=== PATIENT | female | born 1950 | race African-American/Black ===

== ENCOUNTER 2018-04-22 18:15 | Observation (INO) | payer MEDICARE ==
[2018-04-22] MEDS ORDERED: NORMAL SALINE 1000 ML 1,000 ML IV ONE (18:53)
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
[2018-04-22 22:11] LABS: ABSOLUTE LYMPHOCYTES (AUTO) 2.1 10^3/uL (0.5-4.7); ABSOLUTE MONOCYTES (AUTO) 0.7 10^3/uL (0.1-1.4); ABSOLUTE NEUT (AUTO) 3.6 10^3/uL (1.7-8.2); BASOPHILS % (AUTO) 0.7 % (0-2); EOSINOPHILS % (AUTO) 0.2 % (0-6); HEMATOCRIT 35.9 % (36.0-47.0); HEMOGLOBIN 11.9 g/dL (12.0-15.5); LYMPHOCYTES % (AUTO) 32.9 % (13-45); MEAN CORPUSCULAR HEMOGLOBIN 28.9 pg (27.0-33.4); MEAN CORPUSCULAR HGB CONC 33.3 g/dL (32.0-36.0); MEAN CORPUSCULAR VOLUME 87 fl (80-97); MONOCYTES % (AUTO) 10.2 % (3-13); PLATELET COUNT 258 10^3/uL (150-450); RED BLOOD COUNT 4.13 10^6/uL (3.72-5.28); RED CELL DISTRIBUTION WIDTH 15.1 % (11.5-14.0); TOTAL CELLS COUNTED % (AUTO) 100 %; WHITE BLOOD COUNT 6.4 10^3/uL (4.0-10.5)
[2018-04-22 22:20] LABS: APPEARANCE,URINE CLOUDY; BILIRUBIN,URINE NEGATIVE (NEGATIVE); COLOR,URINE YELLOW; GLUCOSE, URINE NEGATIVE (NEGATIVE); KETONES,URINE NEGATIVE (NEGATIVE); LEUKOCYTE ESTERASE,URINE LARGE (NEGATIVE); NITRITE,URINE NEGATIVE (NEGATIVE); PROTEIN,URINE 30 mg/dL (NEGATIVE); URINE SPECIFIC GRAVITY 1.025
[2018-04-22 22:31] LABS: ALANINE AMINOTRANSFERASE 17 U/L (9-52); ALBUMIN 4.2 g/dL (3.5-5.0); ALKALINE PHOSPHATASE 80 U/L (38-126); ANION GAP 13 (5-19); ASPARTATE AMINO TRANSFERASE 26 U/L (14-36); BILIRUBIN,DIRECT 0.2 mg/dL (0.0-0.4); BILIRUBIN,TOTAL 0.4 mg/dL (0.2-1.3); BLOOD UREA NITROGEN 22 mg/dL (7-20); CARBON DIOXIDE 25 mmol/L (22-30); CHLORIDE 105 mmol/L (98-107); GLUCOSE 174 mg/dL (75-110); POTASSIUM 4.6 mmol/L (3.6-5.0); SODIUM 142.6 mmol/L (137-145)
--- NOTE | 2018-04-22 22:54 | RADIOLOGY REPORT (SQ) ---
XR CHEST 1 VIEW HISTORY: Hypertension. Weakness. COMPARISON: None. FINDINGS: The cardiomediastinal silhouette is unremarkable. The lungs are clear. No pleural effusion or pneumothorax is identified. No acute osseous findings are seen. IMPRESSION: No acute cardiopulmonary abnormality.
--- NOTE | 2018-04-22 23:15 | RADIOLOGY REPORT (SQ) ---
CT HEAD WITHOUT IV CONTRAST HISTORY: Hypertension. Weakness. COMPARISON: None. TECHNIQUE: CT scan of the brain without IV contrast. This exam was performed according to our departmental dose-optimization program, which includes automated exposure control, adjustment of the mA and/or kV according to patient size and/or use of iterative reconstruction technique. FINDINGS: There is a large area of encephalomalacia in the left high parietal region containing CSF and calcifications from prior trauma. The overlying calvarium is thinned and contains fracture fragments, which appear chronic given the lack of scalp swelling. Scattered areas of hypoattenuation within the periventricular white matter likely representing chronic microvascular ischemia. The lainez-white matter differentiation is preserved without evidence of acute territorial infarction. No intracranial hemorrhage, midline shift, or extra-axial fluid collection is identified. The paranasal sinuses and mastoid air cells are clear. IMPRESSION: 1. No acute intracranial hemorrhage. 2. Old injury to the left high parietal region with large area of encephalomalacia. There is a fracture of the overlying calvarium with fragments within the area of encephalomalacia, which all appear chronic. However, please correlate for point tenderness in this region.
[2018-04-22 23:16] LABS: CREATINE KINASE MB 1.88 ng/mL (<4.55)
[2018-04-22 23:18] LABS: TROPONIN I 0.046 ng/mL
[2018-04-23] MEDS ORDERED: MAG HYDROX/AL HYDROX/SIMETH SUSP 30 ML UDCUP PO PRN (00:44)
[2018-04-23] MEDS ORDERED: DEXTROSE 50%-WATER 25 GM/50 ML DISP.SYRIN IV PRN ×2 (00:48)
[2018-04-23] MEDS ORDERED: GLUCAGON,HUMAN RECOMB 1 MG INJ IM PRN (00:48)
[2018-04-23] MEDS ORDERED: DEXTROSE 40% GEL 15 GM TUBE PO PRN ×2 (00:48)
[2018-04-23] MEDS ORDERED: GLUCAGON,HUMAN RECOMB 1 MG INJ IM ONE (02:51)
[2018-04-23 03:49] LABS: ANION GAP 9 (5-19); BLOOD UREA NITROGEN 21 mg/dL (7-20); CALCIUM 10.1 mg/dL (8.4-10.2); CARBON DIOXIDE 26 mmol/L (22-30); CHLORIDE 108 mmol/L (98-107); GLUCOSE 201 mg/dL (75-110); POTASSIUM 4.4 mmol/L (3.6-5.0); SODIUM 142.5 mmol/L (137-145)
[2018-04-23 04:01] LABS: CREATINE KINASE MB 1.95 ng/mL (<4.55); TROPONIN I 0.046 ng/mL
--- NOTE | 2018-04-23 07:33 | PDOC H&P ---
History of Present Illness Admission Date/PCP: 04/23/18 00:37 [facility] Patient complains of: Almost passed out History of Present Illness: NENITA SANCHEZ is a 68 year old female with a past medical history of paroxysmal atrial fibrillation on propafenone, hypertension and remote breast cancer. Patient presents after lightheadedness after standing from a sitting position. She denies chest pain, palpitations, nausea or vomiting symptoms persisted approximately 5 minutes prompting evaluation in the emergency room where she is found to have sinus bradycardia in the 40s. She denies previous episode, change in medication regiment and otherwise feels well with the exception of constipation. Initial workup is unremarkable without evidence of hypoperfusion she is referred to the hospitalist for admission. Past Medical History Cardiac Medical History: Reports: Hypertension Denies: Coronary Artery Disease, Myocardial Infarction Pulmonary Medical History: Reports: Bronchitis Denies: Asthma, Chronic Obstructive Pulmonary Disease (COPD), Pneumonia EENT Medical History: Reports: None Neurological Medical History: Denies: Seizures Endocrine Medical History: Reports: Diabetes Mellitus Type 2 Renal/ Medical History: Reports: None Malignancy Medical History: Reports: Breast Cancer - Right GI Medical History: Reports: Gastroesophageal Reflux Disease Musculoskeltal Medical History: Reports: Arthritis Skin Medical History: Reports: None Psychiatric Medical History: Reports: None Traumatic Medical History: Reports: Traumatic Brain Injury Hematology: Reports: Anemia - hx Infectious Medical History: Reports: None Past Surgical History Past Surgical History: Reports: Cholecystectomy, Mastectomy - Right, Tubal Ligation Denies: Hysterectomy Social History Information Source: Patient Lives with: Family Smoking Status: Never Smoker Frequency of Alcohol Use: None Drugs: None - Advance Directive Resuscitation Status: Full Code Family History Family History: Arthritis, CAD, CVA, DM, Hyperlipidemia, Hypertension, Malignancy, Thyroid Disfunction. denies: COPD Parental Family History Reviewed: Yes Children Family History Reviewed: Yes Sibling(s) Family History Reviewed.: Yes Medication/Allergy Allergies/Adverse Reactions: Beef Containing Products Allergy (Verified 04/22/18 18:45) egg Allergy (Verified 04/22/18 18:45) peanut Allergy (Verified 04/22/18 18:16) Review of Systems Constitutional: ABSENT: chills, fever(s), headache(s), weight gain, weight loss Eyes: ABSENT: visual disturbances Ears: ABSENT: hearing changes Cardiovascular: ABSENT: chest pain, dyspnea on exertion, edema, orthropnea, palpitations Respiratory: ABSENT: cough, hemoptysis Gastrointestinal: PRESENT: constipation. ABSENT: abdominal pain, diarrhea, hematemesis, hematochezia, nausea, vomiting Genitourinary: ABSENT: dysuria, hematuria Musculoskeletal: ABSENT: joint swelling Integumentary: ABSENT: rash, wounds Neurological: ABSENT: abnormal gait, abnormal speech, confusion, dizziness, focal weakness, syncope Psychiatric: ABSENT: anxiety, depression, homidical ideation, suicidal ideation Endocrine: ABSENT: cold intolerance, heat intolerance, polydipsia, polyuria Hematologic/Lymphatic: ABSENT: easy bleeding, easy bruising Physical Exam Vital Signs: Temp Pulse Resp BP Pulse Ox 98.4 F 45 L 16 131/65 H 99 04/23/18 04:18 04/23/18 04:18 04/23/18 04:18 04/23/18 04:18 04/23/18 04:18 Intake & Output 04/21/18 04/22/18 04/23/18 11:59 11:59 11:59 Weight 144.8 kg General appearance: PRESENT: no acute distress, well-developed, well-nourished Head exam: PRESENT: atraumatic, normocephalic Eye exam: PRESENT: conjunctiva pink, EOMI, PERRLA. ABSENT: scleral icterus Ear exam: PRESENT: normal external ear exam Mouth exam: PRESENT: moist, tongue midline Neck exam: ABSENT: carotid bruit, JVD, lymphadenopathy, thyromegaly Respiratory exam: PRESENT: clear to auscultation rebecca. ABSENT: rales, rhonchi, wheezes Cardiovascular exam: PRESENT: bradycardia, RRR. ABSENT: diastolic murmur, rubs , systolic murmur Pulses: PRESENT: normal dorsalis pedis pul Vascular exam: PRESENT: normal capillary refill GI/Abdominal exam: PRESENT: normal bowel sounds, soft. ABSENT: distended, guarding, mass, organolmegaly, rebound, tenderness Rectal exam: PRESENT: deferred Extremities exam: PRESENT: full ROM. ABSENT: calf tenderness, clubbing, pedal edema Neurological exam: PRESENT: alert, awake, oriented to person, oriented to place , oriented to time, oriented to situation, CN II-XII grossly intact. ABSENT: motor sensory deficit Psychiatric exam: PRESENT: appropriate affect, normal mood. ABSENT: homicidal ideation, suicidal ideation Skin exam: PRESENT: dry, intact, warm. ABSENT: cyanosis, rash Results Laboratory Results: 04/23/18 03:21 04/23/18 03:21 Sodium 142.5 Potassium 4.4 Chloride 108 H Carbon Dioxide 26 Anion Gap 9 BUN 21 H Creatinine 0.96 Est GFR ( Amer) > 60 Est GFR (Non-Af Amer) 58 L Glucose 201 H Calcium 10.1 04/23/18 03:21 CK-MB (CK-2) 1.95 Troponin I 0.046 Impressions: Chest X-Ray 04/22/18 00:00 IMPRESSION: No acute cardiopulmonary abnormality. Head CT 04/22/18 00:00 IMPRESSION: 1. No acute intracranial hemorrhage. 2. Old injury to the left high parietal region with large area of encephalomalacia. There is a fracture of the overlying calvarium with fragments within the area of encephalomalacia, which all appear chronic. However, please correlate for point tenderness in this region. Assessment & Plan - Diagnosis (1) Pre-syncope Is this a current diagnosis for this admission?: Yes Plan: Most likely secondary to propafenone with bradycardia, hold propafenone with orthostatic blood pressures. (2) Bradycardia on ECG Is this a current diagnosis for this admission?: Yes Plan: Most likely secondary to propafenone, follow-up TSH and orthostatic blood pressures (3) Diabetes Is this a current diagnosis for this admission?: Yes Plan: Outpatient regimen with Humalog sliding scale - Time Time Spent: 50 to 70 Minutes - Inpatient Certification Medical Necessity: Need Close Monitoring Due to Risk of Patient Decompensation
[2018-04-23] MEDS ORDERED: NORMAL SALINE 1000 ML 1,000 ML IV ONE (08:47)
--- NOTE | 2018-04-23 09:25 | EKG REPORT ---
SEVERITY:- ABNORMAL ECG - SINUS BRADYCARDIA BORDERLINE LEFT AXIS DEVIATION BORDERLINE R WAVE PROGRESSION, ANTERIOR LEADS BORDERLINE T ABNORMALITIES, DIFFUSE LEADS : Confirmed by: Epi Selby 23-Apr-2018 09:25:17
[2018-04-23] MEDS: AMLODIPINE BESYLATE 10 MG TABLET PO SCH (09:43)
[2018-04-23] MEDS: DOCUSATE SODIUM 100 MG CAPSULE PO SCH ×2 (09:46→18:59)
[2018-04-23] MEDS ORDERED: TRIAMCINOLONE ACETONIDE 0.1% CREAM 15 GM TOP PRN (11:28)
[2018-04-23 11:41] LABS: CREATINE KINASE MB 0.66 ng/mL (<4.55); TROPONIN I 0.02 ng/mL
[2018-04-23 16:11] LABS: CREATINE KINASE MB 1.66 ng/mL (<4.55); TROPONIN I 0.046 ng/mL
--- NOTE | 2018-04-23 18:21 | PDOC PROGRESS REPORT ---
Subjective Progress Note for:: 04/23/18 Subjective:: The patient is a 68-year-old female with a past medical history of PAF on propafenon, hypertension, bronchitis, DM 2, remote breast cancer, GERD, arthritis, TBI, remote breast cancer, and morbid obesity who was admitted for presyncopal symptoms and bradycardia. Patient was seen on morning rounds with her daughter present. She was found resting in bed comfortably on room air. She denies further symptoms of dizziness, lightheadedness, nausea and vomiting. She denies fever, chills, chest pain, palpitations, dyspnea, orthopnea, abdominal pain, nausea vomiting diarrhea, and peripheral edema. In fact, her only complaint today is a chronic rash to her posterior knees that is pruritic. She has no new questions or concerns today. No concerns per nursing Reason For Visit: PRE SYNCOPE BRADYCARDIA PAFIB Physical Exam Vital Signs: Temp Pulse Resp BP Pulse Ox 98.3 F 66 18 109/51 L 99 04/23/18 11:44 04/23/18 14:00 04/23/18 11:44 04/23/18 11:44 04/23/18 11:44 Intake & Output 04/22/18 04/23/18 04/24/18 06:59 06:59 06:59 Intake Total 1000 Balance 1000 Weight 144.8 kg General appearance: PRESENT: no acute distress, cooperative, morbidly obese, well-developed, well-nourished Head exam: PRESENT: atraumatic, normocephalic Eye exam: PRESENT: conjunctiva pink, EOMI, PERRLA. ABSENT: scleral icterus Ear exam: PRESENT: normal external ear exam Mouth exam: PRESENT: moist, tongue midline Neck exam: ABSENT: carotid bruit, JVD, lymphadenopathy, thyromegaly Respiratory exam: PRESENT: decreased breath sounds - Throughout; secondary to body habitus and poor inspiratory effort, prolonged expiratory phas, symmetrical , unlabored. ABSENT: rales, rhonchi, wheezes Cardiovascular exam: PRESENT: bradycardia, RRR, +S1, +S2. ABSENT: diastolic murmur, rubs, systolic murmur Pulses: PRESENT: normal dorsalis pedis pul Vascular exam: PRESENT: normal capillary refill GI/Abdominal exam: PRESENT: normal bowel sounds, soft. ABSENT: distended, guarding, mass, organolmegaly, rebound, tenderness Rectal exam: PRESENT: deferred Extremities exam: PRESENT: full ROM. ABSENT: calf tenderness, clubbing, pedal edema Neurological exam: PRESENT: alert, awake, oriented to person, oriented to place , oriented to time, oriented to situation, CN II-XII grossly intact. ABSENT: motor sensory deficit Psychiatric exam: PRESENT: appropriate affect, normal mood. ABSENT: homicidal ideation, suicidal ideation Skin exam: PRESENT: dry, erythema - Skin fold; bilateral posterior knees, intact , warm. ABSENT: cyanosis, rash Results Laboratory Results: 04/23/18 03:21 04/23/18 03:21 Sodium 142.5 Potassium 4.4 Chloride 108 H Carbon Dioxide 26 Anion Gap 9 BUN 21 H Creatinine 0.96 Est GFR ( Amer) > 60 Est GFR (Non-Af Amer) 58 L Glucose 201 H Calcium 10.1 04/23/18 04/23/18 04/23/18 03:21 10:33 15:30 CK-MB (CK-2) 1.95 0.66 1.66 Troponin I 0.046 0.020 0.046 Impressions: Chest X-Ray 04/22/18 00:00 IMPRESSION: No acute cardiopulmonary abnormality. Head CT 04/22/18 00:00 IMPRESSION: 1. No acute intracranial hemorrhage. 2. Old injury to the left high parietal region with large area of encephalomalacia. There is a fracture of the overlying calvarium with fragments within the area of encephalomalacia, which all appear chronic. However, please correlate for point tenderness in this region. Assessment & Plan - Diagnosis (1) Pre-syncope Is this a current diagnosis for this admission?: Yes Plan: No further presyncopal episodes since time of admission. Likely secondary to propafenone resulting in bradycardia; further worsened by slight dehydration as noted by urine specific gravity of 1.025 and mild orthostatic blood pressures. TSH is normal. Troponins are indeterminately elevated to 0.046, but stable. Head CT demonstrates chronic TBI to the left high parietal region; no acute findings. EKG demonstrates sinus bradycardia with nonspecific T wave abnormalities; no acute findings. The patient is admitted to the medical floor on continuous cardiac telemetry. Holding propafenone and chlorthalidone. She is received 2 L normal saline. Continue orthostatic blood pressures; improving. Heart rate is trending up. (2) Bradycardia on ECG Is this a current diagnosis for this admission?: Yes Plan: Likely secondary to propafenone; holding medication and heart rate is gradually trending up. Remains in sinus rhythm. TSH is nml. Pt is already on the lowest recommended dose; may need to consider alternate medication (diltiazem) for rhythm control. (3) Dehydration Is this a current diagnosis for this admission?: Yes Plan: Evidenced by urine specific gravity 1.025 and mildly orthostatic blood pressures. She has been provided 2 L normal saline. Encourage p.o. fluids. Continue to monitor orthostatic blood pressures every shift. (4) Diabetes Qualifiers: Diabetes mellitus type: type 2 Is this a current diagnosis for this admission?: Yes Plan: Patient reports a history of diabetes type 2; she does not appear to be on home medications. We will check A1c with a.m. lab work. She is placed on a consistent carb diet. Accu-Cheks before meals and at bedtime with Humalog for sliding scale coverage. Hypoglycemia protocols in place. (5) Rash Is this a current diagnosis for this admission?: Yes Plan: Triamcinolone cream twice daily as needed for pruritus. - Time Time Spent with patient: 15-24 minutes Medications reviewed and adjusted accordingly: Yes Anticipated discharge: Home Within: within 24 hours
[2018-04-23] MEDS: INSULIN LISPRO 100 UNIT/ML 3 ML VIAL SUBCUT PRN (18:59)
[2018-04-23] MEDS: CETIRIZINE 10 MG TABLET PO SCH (21:15)
[2018-04-24] MEDS: LEVOTHYROXINE SODIUM 0.1 MG TABLET PO SCH (05:23)
[2018-04-24] MEDS: LEVOTHYROXINE SODIUM 0.075 MG TABLET PO SCH (05:23)
[2018-04-24] MEDS ORDERED: (PENDING PHARMACY ID) (Levothyroxine Sodium [Synthroid] 175 MCG) PO SCH (06:00)
[2018-04-24] MEDS ORDERED: LEVOTHYROXINE SODIUM 0.075 MG TABLET PO SCH (06:00)
[2018-04-24 07:49] LABS: ANION GAP 10 (5-19); BLOOD UREA NITROGEN 18 mg/dL (7-20); CALCIUM 10.3 mg/dL (8.4-10.2); CARBON DIOXIDE 27 mmol/L (22-30); CHLORIDE 106 mmol/L (98-107); GLUCOSE 126 mg/dL (75-110); SODIUM 142.7 mmol/L (137-145)
[2018-04-24] MEDS: ACETAMINOPHEN 325 MG TABLET PO PRN (08:23)
[2018-04-24] MEDS ORDERED: (PENDING PHARMACY ID) (Ranitidine Hcl [Zantac] 300 MG) PO SCH (10:00)
[2018-04-24] MEDS ORDERED: TIMOLOL MALEATE 0.5% OPH SOLN 5 ML OU SCH (10:00)
[2018-04-24] MEDS ORDERED: (PENDING PHARMACY ID) (Linaclotide 145 MCG) PO SCH (10:00)
[2018-04-24] MEDS: FAMOTIDINE 20 MG TABLET PO SCH (10:08)
[2018-04-24] MEDS: AMLODIPINE BESYLATE 10 MG TABLET PO SCH (10:08)
[2018-04-24] MEDS: DOCUSATE SODIUM 100 MG CAPSULE PO SCH ×2 (10:08→17:53)
[2018-04-24] MEDS: DORZOLAMIDE HCL 2%/TIMOLOL MALEAT 0.5% OPH SOLN 10 ML OU SCH ×2 (10:09→17:54)
[2018-04-24] MEDS ORDERED: LORAZEPAM INJ 2 MG/1 ML VIAL IV PRN ×2 (14:32→14:56)
--- NOTE | 2018-04-24 16:35 | PDOC PROGRESS REPORT ---
Subjective Progress Note for:: 04/24/18 Subjective:: The patient is a 68-year-old female with a past medical history of PAF on propafenon, hypertension, bronchitis, DM 2, remote breast cancer, GERD, arthritis, TBI, remote breast cancer, and morbid obesity who was admitted for presyncopal symptoms and bradycardia. Patient was seen on morning rounds with her daughter present. She was found sitting up to the edge of bed comfortably on room air. The patient complains of continued dizziness, blurred vision, and a left temporal headache. She does state that her dizziness is much improved from yesterday and now is only occurring with ambulation. She is ambulate approximately 10 feet to and from the restroom. She denies fever, chills, chest pain, palpitations, dyspnea, orthopnea, abdominal pain, nausea vomiting diarrhea, and peripheral edema. Patient and daughter both very concerned about stopping her Rythmol; they are unable to provide a clear history regarding indication. Daughter reports that the patient was told that she had atrial fibrillation in the emergency department several years ago. Since that time she has been in a sinus rhythm and her surgeon's assistant has spoken multiple times about stopping the medications; it is unclear why she remains on the medication if cardiology no longer feels that she requires it. I did attempt to call her established surgeon's assistant; was unable to speak with anybody at that office after being on hold for approximately 10-15 minutes. Overall, the patient appears much improved, but does continue to have anxiety with regard to discharge. Reason For Visit: PRE SYNCOPE BRADYCARDIA PAFIB Physical Exam Vital Signs: Temp Pulse Resp BP Pulse Ox 98.3 F 63 18 115/73 97 04/24/18 11:51 04/24/18 14:00 04/24/18 11:51 04/24/18 11:51 04/24/18 11:51 Intake & Output 04/23/18 04/24/18 04/25/18 06:59 06:59 06:59 Intake Total 2946 Balance 2946 Weight 144.8 kg 147.1 kg General appearance: PRESENT: no acute distress, morbidly obese, well-developed, well-nourished Head exam: PRESENT: atraumatic, normocephalic Eye exam: PRESENT: conjunctiva pink, EOMI, PERRLA. ABSENT: scleral icterus Ear exam: PRESENT: normal external ear exam Mouth exam: PRESENT: moist, tongue midline Neck exam: ABSENT: carotid bruit, JVD, lymphadenopathy, thyromegaly Respiratory exam: PRESENT: clear to auscultation rebecca, symmetrical, unlabored. ABSENT: rales, rhonchi, wheezes Cardiovascular exam: PRESENT: RRR, +S1, +S2. ABSENT: diastolic murmur, rubs, systolic murmur Pulses: PRESENT: normal dorsalis pedis pul Vascular exam: PRESENT: normal capillary refill GI/Abdominal exam: PRESENT: normal bowel sounds, soft. ABSENT: distended, guarding, mass, organolmegaly, rebound, tenderness Rectal exam: PRESENT: deferred Extremities exam: PRESENT: full ROM. ABSENT: calf tenderness, clubbing, pedal edema Neurological exam: PRESENT: alert, awake, oriented to person, oriented to place , oriented to time, oriented to situation, CN II-XII grossly intact - Negative Romberg, cerebellar exam is benign (no dysdiadochokinesia, normal finger to nose ), normal gait. ABSENT: motor sensory deficit Psychiatric exam: PRESENT: appropriate affect, normal mood. ABSENT: homicidal ideation, suicidal ideation Skin exam: PRESENT: dry, intact, warm. ABSENT: cyanosis, rash Results Laboratory Results: 04/24/18 05:57 04/24/18 05:57 Sodium 142.7 Potassium 4.0 Chloride 106 Carbon Dioxide 27 Anion Gap 10 BUN 18 Creatinine 0.91 Est GFR ( Amer) > 60 Est GFR (Non-Af Amer) > 60 Glucose 126 H Calcium 10.3 H 04/23/18 04/23/18 04/23/18 03:21 10:33 15:30 CK-MB (CK-2) 1.95 0.66 1.66 Troponin I 0.046 0.020 0.046 Impressions: Chest X-Ray 04/22/18 00:00 IMPRESSION: No acute cardiopulmonary abnormality. Head CT 04/22/18 00:00 IMPRESSION: 1. No acute intracranial hemorrhage. 2. Old injury to the left high parietal region with large area of encephalomalacia. There is a fracture of the overlying calvarium with fragments within the area of encephalomalacia, which all appear chronic. However, please correlate for point tenderness in this region. Assessment & Plan - Diagnosis (1) Pre-syncope Is this a current diagnosis for this admission?: Yes Plan: No further presyncopal episodes since time of admission; however, patient now is reporting intermittent dizziness, blurred vision, and a left temporal headache. Exam is unremarkable. Likely secondary to propafenone resulting in bradycardia; further worsened by slight dehydration as noted by urine specific gravity of 1.025 and mild orthostatic blood pressures. TSH is normal. Troponins are indeterminately elevated to 0.046, but stable. Head CT demonstrates chronic TBI to the left high parietal region; no acute findings. EKG demonstrates sinus bradycardia with nonspecific T wave abnormalities; no acute findings. The patient is admitted to the medical floor on continuous cardiac telemetry. Holding propafenone and chlorthalidone. She is received 2 L normal saline. Continue orthostatic blood pressures; much improved. Heart rate now mid 60s- 70s while at rest, 80s with minimal activity. MRI of the head is pending. (2) Bradycardia on ECG Is this a current diagnosis for this admission?: Yes Plan: Significant improvement. Likely secondary to propafenone; holding medication and heart rate is gradually trending up. Repeat EKG this morning demonstratessinus rhythm. TSH is nml. Pt is already on the lowest recommended dose of propafenone; may need to consider alternate medication (diltiazem) for rhythm control. Attempted to contact the patient's established surgeon's assistant today there is an unclear history ; family reports only one episode of atrial fibrillation on that she is remote did not require any type of cardioversion. (3) Dehydration Is this a current diagnosis for this admission?: Yes Plan: Resolved. Evidenced by urine specific gravity 1.025 and mildly orthostatic blood pressures. She has been provided 2 L normal saline. Encourage p.o. fluids. Continue to monitor orthostatic blood pressures every shift. (4) Diabetes Qualifiers: Diabetes mellitus type: type 2 Is this a current diagnosis for this admission?: Yes Plan: Patient reports a history of diabetes type 2; she does not appear to be on home medications. A1c 7.1% She is placed on a consistent carb diet. Accu-Cheks before meals and at bedtime with Humalog for sliding scale coverage. Hypoglycemia protocols in place. (5) Rash Is this a current diagnosis for this admission?: Yes Plan: Triamcinolone cream twice daily as needed for pruritus. - Time Time Spent with patient: 25-34 minutes Medications reviewed and adjusted accordingly: Yes Anticipated discharge: Home Within: within 24 hours
--- NOTE | 2018-04-24 17:02 | RADIOLOGY REPORT (SQ) ---
EXAM DESCRIPTION: MRI HEAD WITHOUT COMPLETED DATE/TIME: 04/24/2018 4:47 pm REASON FOR STUDY: dizziness, blurred vision R73.9 HYPERGLYCEMIA, UNSPECIFIED R42 DIZZINESS AND GID DINESS COMPARISON: CT 04/22/2018 TECHNIQUE: Multiplanar imaging includes non-contrasted T1, T2, FLAIR, and diffusion with ADC map seq uences. Images stored on PACS. LIMITATIONS: None. FINDINGS: ANATOMY: No anomalies. Normal vascular flow voids. Pituitary fossa normal. CSF SPACES: Normal in size and contour. No hemorrhage. CEREBRUM: Large area of encephalomalacia in the left parietal lobe. No hemorrhage, contusion, mass. No midline shift. There are areas of increased FLAIR signal in the periventricular white matter. POSTERIOR FOSSA: No signal alteration. No hemorrhage. No edema, masses or mass effect. Internal osman tory canals, cerebello-pontine angles, mastoids normal. DIFFUSION IMAGING: Negative for acute or sub-acute infarction. ORBITS: No masses. Globes normal. PARANASAL SINUSES: No fluid levels. Mucosa normal. OTHER: No other significant finding. IMPRESSION: Large area of encephalomalacia in the left parietal lobe from prior trauma apparently. Chronic microvascular ischemic changes. No acute intracranial imaging findings. EVIDENCE OF ACUTE STROKE: NO. TECHNICAL DOCUMENTATION: JOB ID: [id number] [employer]- All Rights Reserved Reading location - IP/workstation name: [email or web address]
[2018-04-24] MEDS: INSULIN LISPRO 100 UNIT/ML 3 ML VIAL SUBCUT PRN (17:54)
[2018-04-24] MEDS: CETIRIZINE 10 MG TABLET PO SCH (21:36)
[2018-04-25] MEDS ORDERED: GLUCAGON,HUMAN RECOMB 1 MG INJ ONE (03:01)
[2018-04-25] MEDS ORDERED: GLUCAGON,HUMAN RECOMB 1 MG INJ IM ONE (03:15)
[2018-04-25 06:47] LABS: HEMATOCRIT 33.4 % (36.0-47.0); HEMOGLOBIN 11.3 g/dL (12.0-15.5); MEAN CORPUSCULAR HEMOGLOBIN 28.8 pg (27.0-33.4); MEAN CORPUSCULAR HGB CONC 33.8 g/dL (32.0-36.0); MEAN CORPUSCULAR VOLUME 85 fl (80-97); PLATELET COUNT 260 10^3/uL (150-450); RED BLOOD COUNT 3.93 10^6/uL (3.72-5.28); RED CELL DISTRIBUTION WIDTH 14.7 % (11.5-14.0); WHITE BLOOD COUNT 6.5 10^3/uL (4.0-10.5)
[2018-04-25] MEDS: LEVOTHYROXINE SODIUM 0.075 MG TABLET PO SCH (06:48)
[2018-04-25] MEDS: LEVOTHYROXINE SODIUM 0.1 MG TABLET PO SCH (06:48)
[2018-04-25 07:08] LABS: ANION GAP 13 (5-19); BLOOD UREA NITROGEN 16 mg/dL (7-20); CALCIUM 10.8 mg/dL (8.4-10.2); CARBON DIOXIDE 24 mmol/L (22-30); CHLORIDE 104 mmol/L (98-107); GLUCOSE 189 mg/dL (75-110); POTASSIUM 4.3 mmol/L (3.6-5.0); SODIUM 140.9 mmol/L (137-145)
[2018-04-25] MEDS: ACETAMINOPHEN 325 MG TABLET PO PRN ×2 (08:49→17:16)
--- NOTE | 2018-04-25 09:10 | EKG REPORT ---
SEVERITY:- ABNORMAL ECG - SINUS RHYTHM BORDERLINE LEFT AXIS DEVIATION CONSIDER ANTEROSEPTAL INFARCT BORDERLINE T ABNORMALITIES, INFERIOR LEADS : Confirmed by: Epi Selby 25-Apr-2018 09:09:31
--- NOTE | 2018-04-25 09:50 | PDOC CONSULTATION ---
History of Present Illness Admission Date/PCP: 04/23/18 00:37 [facility] History of Present Illness: NENITA SANCHEZ is a 68 year old female With past medical history of paroxysmal atrial fibrillation on rhythm control with propafenone and anticoagulation with Xarelto therapy, hypertension, diabetes mellitus, obesity was admitted on 04/23/18 with complaints of dizziness and weakness and found to have sinus bradycardia. Propafenone therapy was discontinued on admission and she has had an extensive workup for her dizziness and weakness including imaging of the brain, thyroid profile and labs. No acute cerebral infarct was identified. She was also hydrated with IV fluid for probable dehydration. She continues to have symptoms of dizziness and weakness and has still noted to be bradycardic. Patient seen at bedside and denies any complaints of chest pain or acute shortness of breath. She lives by herself and has been able to take care of her activities of daily living by herself in the past. She claims that she follows with Dr. Dennis Greenfield in [place] but has not seen him for the last year or so. She does remember that she has been told at times her heart rate has been slow in the past but she denies any history of previous dizziness or falls. She denies any history of bleeding per rectum or black stools. She claims she has had cardiac workup including a stress test and echocardiogram with Dr. Greenfield in the past but has been more than a year ago. She denies history of cigarette smoking or alcohol abuse. She lives by herself. Her grandfather had heart disease. She also claims that she had a sleep study a few years ago which was negative for sleep apnea. Past Medical History Cardiac Medical History: Reports: Atrial Fibrillation, Hypertension Denies: Coronary Artery Disease, Myocardial Infarction Pulmonary Medical History: Reports: Bronchitis Denies: Asthma, Chronic Obstructive Pulmonary Disease (COPD), Pneumonia EENT Medical History: Reports: None Neurological Medical History: Denies: Seizures Endocrine Medical History: Reports: Diabetes Mellitus Type 2 Renal/ Medical History: Reports: None Malignancy Medical History: Reports: Breast Cancer - Right GI Medical History: Reports: Gastroesophageal Reflux Disease Musculoskeltal Medical History: Reports: Arthritis Skin Medical History: Reports: None Psychiatric Medical History: Reports: None Traumatic Medical History: Reports: Traumatic Brain Injury Hematology: Reports: Anemia - hx Infectious Medical History: Reports: None Past Surgical History Past Surgical History: Reports: Cholecystectomy, Mastectomy - Right, Tubal Ligation Denies: Hysterectomy Social History Lives with: Family Smoking Status: Never Smoker Frequency of Alcohol Use: None Drugs: None - Advance Directive Resuscitation Status: Full Code Family History Family History: Reviewed & Not Pertinent, Arthritis, CAD, CVA, DM, Hyperlipidemia, Hypertension, Malignancy, Thyroid Disfunction. denies: COPD Parental Family History Reviewed: Yes - Grandfather had heart disease Children Family History Reviewed: Unknown Sibling(s) Family History Reviewed.: Yes Medication/Allergy Home Medications: Amlodipine Besylate [Norvasc 10 mg Tablet] 10 mg PO DAILY 04/23/18 Cetirizine HCl [Zyrtec 10 mg Tablet] 10 mg PO DAILY 04/23/18 Chlorthalidone [Hygroton 25 mg Tablet] 25 mg PO DAILY 04/23/18 Dorzolamide HCl/Timolol Maleat [Cosopt Eye Drops] 1 drop OU BID 04/23/18 Levothyroxine Sodium [Synthroid] 175 mcg PO Q6AM 04/23/18 Linaclotide [Linzess 145 Mcg Capsule] 145 mcg PO DAILY 04/23/18 Losartan Potassium [Cozaar 100 mg Tablet] 100 mg PO DAILY 04/23/18 Potassium Chloride [Klor-Con 10 Meq Capsule ER] 10 meq PO DAILY 04/23/18 Propafenone HCl [Rythmol 150 Mg Tablet] 150 mg PO Q8 04/23/18 Ranitidine HCl [Zantac] 300 mg PO DAILY 04/23/18 Allergies/Adverse Reactions: Beef Containing Products Allergy (Verified 04/22/18 18:45) egg Allergy (Verified 04/22/18 18:45) peanut Allergy (Verified 04/22/18 18:16) Review of Systems Constitutional: PRESENT: weakness Neurological: PRESENT: dizziness, weakness Physical Exam Vital Signs: Temp Pulse Resp BP Pulse Ox 98.4 F 69 18 119/71 93 04/25/18 07:33 04/25/18 07:33 04/25/18 07:33 04/25/18 07:33 04/25/18 07:33 Intake & Output 04/24/18 04/25/18 04/26/18 06:59 06:59 06:59 Intake Total 2946 1704 Balance 2946 1704 Weight 147.1 kg 145.4 kg General appearance: PRESENT: other - Morbidly obese female in no acute distress. Head exam: PRESENT: atraumatic Mouth exam: PRESENT: dry mucosa Neck exam: PRESENT: full ROM Respiratory exam: PRESENT: clear to auscultation rebecca. ABSENT: rales, rhonchi, wheezes Cardiovascular exam: PRESENT: bradycardia Pulses: PRESENT: normal dorsalis pedis pul Rectal exam: PRESENT: deferred Extremities exam: PRESENT: full ROM. ABSENT: calf tenderness, clubbing, pedal edema Psychiatric exam: PRESENT: appropriate affect, normal mood. ABSENT: homicidal ideation, suicidal ideation Skin exam: PRESENT: dry, intact, warm. ABSENT: cyanosis, rash Results Laboratory Results: 04/25/18 06:28 04/25/18 06:28 04/25/18 04/25/18 06:28 06:28 WBC 6.5 RBC 3.93 Hgb 11.3 L Hct 33.4 L MCV 85 MCH 28.8 MCHC 33.8 RDW 14.7 H Plt Count 260 Sodium 140.9 Potassium 4.3 Chloride 104 Carbon Dioxide 24 Anion Gap 13 BUN 16 Creatinine 0.83 Est GFR ( Amer) > 60 Est GFR (Non-Af Amer) > 60 Glucose 189 H Calcium 10.8 H 04/23/18 04/23/18 04/23/18 03:21 10:33 15:30 CK-MB (CK-2) 1.95 0.66 1.66 Troponin I 0.046 0.020 0.046 Impressions: Chest X-Ray 04/22/18 00:00 IMPRESSION: No acute cardiopulmonary abnormality. Head CT 04/22/18 00:00 IMPRESSION: 1. No acute intracranial hemorrhage. 2. Old injury to the left high parietal region with large area of encephalomalacia. There is a fracture of the overlying calvarium with fragments within the area of encephalomalacia, which all appear chronic. However, please correlate for point tenderness in this region. Head MRI 04/24/18 00:00 IMPRESSION: Large area of encephalomalacia in the left parietal lobe from prior trauma apparently. Chronic microvascular ischemic changes. No acute intracranial imaging findings. EVIDENCE OF ACUTE STROKE: NO. Assessment & Plan - Diagnosis (1) Symptomatic bradycardia Is this a current diagnosis for this admission?: Yes (2) Elevated troponin I level Is this a current diagnosis for this admission?: Yes (3) Pre-syncope Is this a current diagnosis for this admission?: Yes (5) Diabetes Qualifiers: Diabetes mellitus type: type 2 Is this a current diagnosis for this admission?: Yes - Notes Notes: Patient with previous history of paroxysmal atrial fibrillation on rhythm control with propafenone therapy admitted with symptomatic bradycardia and still having dizziness and weakness despite no propafenone therapy since last more than 3 days. Today his vitals reflect orthostatic hypotension from sitting to standing position and will recommend increased fluid intake and hydration. Reviewed her telemetry from admission and no significant pauses noted but primarily shows sinus bradycardia with a heart rate from high 30s to 60 bpm. No tachyarrhythmias noted. Patient could possibly have sick sinus syndrome. In addition she had borderline elevated serum troponin and will need workup for ischemia including an echocardiogram and very likely a nuclear stress test if she has not had one in last 1 year or so. Would continue to hold propafenone therapy and any other rate limiting drugs. Case was discussed with her primary system integration engineer Dr. Dennis Greenfield and in view of the fact that patient may need further cardiac workup and even possibly a permanent pacemaker if she continues to be bradycardi. Plan is to transfer her to [place] for further evaluation under Dr. Greenfield. - Time Time Spent: 50 to 70 Minutes Smoking Education Provided: Other Medications reviewed and adjusted accordingly: Yes
[2018-04-25] MEDS: AMLODIPINE BESYLATE 10 MG TABLET PO SCH (10:32)
[2018-04-25] MEDS: FAMOTIDINE 20 MG TABLET PO SCH (10:33)
[2018-04-25] MEDS: DOCUSATE SODIUM 100 MG CAPSULE PO SCH ×2 (10:33→17:16)
[2018-04-25] MEDS: DORZOLAMIDE HCL 2%/TIMOLOL MALEAT 0.5% OPH SOLN 10 ML OU SCH ×2 (10:36→17:22)
--- NOTE | 2018-04-25 10:38 | PDOC TRANSFER SUMMARY ---
General Admission Date/PCP: 04/23/18 00:37 [place] BALTA Admission Date: 04/23/18 Transfer Date: 04/25/18 Accepting Facility: [facility] Accepting Physician: Dr. Dennis Greenfield Resuscitation Status: Full Code - Transfer Diagnosis (1) Pre-syncope Is this a current diagnosis for this admission?: Yes Diagnosis Summary: Secondary to symptomatic bradycardia and mild dehydration. The patient has been provided 2 L normal saline boluses and continues on IV maintenance fluids. Creatinine and BUN are normal, though the patient does remained mildly orthostatic from sitting to standing. Holding all rate limiting medications. CBC, chemistry, and TSH are unremarkable. The patient does have indeterminately elevated troponins; stable at 0.046. 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 (2) Bradycardia on ECG Is this a current diagnosis for this admission?: Yes Diagnosis Summary: Symptomatic bradycardia; patient continues to have dizziness and orthostatic vital signs. Her propafenone has been held since admission. Troponins are indeterminately elevated but stable. EKGs demonstrate sinus bradycardia. TSH is normal. Today cardiology was consulted; Dr. Adams has recommended transfer to [facility] where the patient is established with Dr. Greenfield. Dr. Adams kindly spoke with Dr. Greenfield, who has agreed to accept the patient for transfer to continue the cardiac workup and evaluation for potential pacemaker needs. (3) Dehydration Is this a current diagnosis for this admission?: Yes Diagnosis Summary: Resolved. (4) Diabetes Is this a current diagnosis for this admission?: Yes Diagnosis Summary: A1C 7.1%; diet controlled. No indications that hypoglycemia may be contributing to her dizziness. She has been placed on a consistent carb diet. Accu-Cheks before meals and at bedtime with Humalog for sliding scale coverage. Hypoglycemia protocols in place (5) Rash Is this a current diagnosis for this admission?: Yes Diagnosis Summary: Triamcinolone cream twice daily as needed. - Transfer Medications Home Medications: Amlodipine Besylate [Norvasc 10 mg Tablet] 10 mg PO DAILY 04/23/18 Cetirizine HCl [Zyrtec 10 mg Tablet] 10 mg PO DAILY 04/23/18 Chlorthalidone [Hygroton 25 mg Tablet] 25 mg PO DAILY 04/23/18 Dorzolamide HCl/Timolol Maleat [Cosopt Eye Drops] 1 drop OU BID 04/23/18 Levothyroxine Sodium [Synthroid] 175 mcg PO Q6AM 04/23/18 Linaclotide [Linzess 145 Mcg Capsule] 145 mcg PO DAILY 04/23/18 Losartan Potassium [Cozaar 100 mg Tablet] 100 mg PO DAILY 04/23/18 Potassium Chloride [Klor-Con 10 Meq Capsule ER] 10 meq PO DAILY 04/23/18 Propafenone HCl [Rythmol 150 Mg Tablet] 150 mg PO Q8 04/23/18 Ranitidine HCl [Zantac] 300 mg PO DAILY 04/23/18 Transfer Medications: Current Medications Acetaminophen (Tylenol 325 Mg Tablet) 650 mg PO Q4HP PRN PRN Reason: PAIN Stop: 05/24/18 08:14 Last Admin: 04/25/18 08:49 Dose: 650 mg Al Hydrox/Mg Hydrox/Simethicone (Maalox Plus Susp 30 Udcup) 30 ml PO Q4HP PRN PRN Reason: HEARTBURN Stop: 05/23/18 00:43 Amlodipine Besylate (Norvasc 10 Mg Tablet) 10 mg PO DAILY [facility] Stop: 05/23/18 09:59 Last Admin: 04/24/18 10:08 Dose: 10 mg Cetirizine HCl (Zyrtec 10 Mg Tablet) 10 mg PO QHS NAM Stop: 05/23/18 21:59 Last Admin: 04/24/18 21:36 Dose: 10 mg Dextrose (Dextrose Inj 50% Syringe (25 Gm/50 Ml)) 12.5 gm IV PRN PRN; Protocol PRN Reason: FOR BG 50-69 IN ALERT PATIENT Stop: 05/23/18 00:47 Dextrose (Dextrose Inj 50% Syringe (25 Gm/50 Ml)) 25 gm IV PRN PRN; Protocol PRN Reason: PER PROTOCOL Stop: 05/23/18 00:47 Docusate Sodium (Colace 100 Mg Capsule) 100 mg PO BID [facility] Stop: 05/23/18 09:59 Last Admin: 04/24/18 17:53 Dose: 100 mg Dorzolamide/Timolol (Cosopt Oph Soln 10 Ml) 1 drop OU BID NAM Stop: 05/24/18 09:59 Last Admin: 04/24/18 17:54 Dose: 1 drop Famotidine (Pepcid 20 Mg Tablet) 40 mg PO DAILY [facility] Stop: 05/24/18 09:59 Last Admin: 04/24/18 10:08 Dose: 40 mg Glucose (Glutose 40% Gel 15 Gm Tube) 15 gm PO PRN PRN; Protocol PRN Reason: FOR BG 50-69 IN ALERT PATIENT Stop: 05/23/18 00:47 Glucose (Glutose 40% Gel 15 Gm Tube) 30 gm PO PRN PRN; Protocol PRN Reason: FOR BG < 50 IN ALERT PATIENT Stop: 05/23/18 00:47 Sodium Chloride (Nacl 0.9% 1000 Ml Iv Soln) 1,000 mls @ 150 mls/hr IV CONTINUOUS PRN PRN Reason: THIS MED IS NOT "PRN" Stop: 05/25/18 10:23 Influenza Virus Vaccine Quadrival (Fluarix Adlt Quad Vac 0.5 Ml Syr) 0.5 ml IM .DISCHARGE PRN PRN Reason: THIS MED IS NOT "PRN" Stop: 05/23/18 02:14 Insulin Human Lispro (Humalog Insulin 100 Unit/1 Ml 3 Ml Vial) 0 - 12 unit SUBCUT ACP PRN; Protocol PRN Reason: PER PROTOCOL Stop: 05/23/18 00:47 Last Admin: 04/24/18 17:54 Dose: 2 unit Levothyroxine Sodium (Synthroid 0.075 Mg Tablet) 0.075 mg PO Q6AM [facility] Stop: 05/24/18 05:59 Last Admin: 04/25/18 06:48 Dose: 0.075 mg Levothyroxine Sodium (Synthroid 0.1 Mg Tablet) 0.1 mg PO Q6AM [facility] Stop: 05/24/18 05:59 Last Admin: 04/25/18 06:48 Dose: 0.1 mg Patient Own Medication (Linaclotide) 145 mcg PO .DAILY [facility] Stop: 05/24/18 09:59 Sodium Chloride (Saline Flush 2.5 Ml Monoject Prefil Syrin) 2.5 ml IV Q8 [facility] Stop: 05/23/18 05:59 Last Admin: 04/25/18 06:49 Dose: 2.5 ml Triamcinolone Acetonide (Aristocort 0.1% Cream 15 Gm) 1 applic TOP BIDP PRN PRN Reason: SKIN IRRITATION Stop: 05/23/18 11:27 Last Admin: 04/24/18 10:09 Dose: 1 applic - Allergies Allergies/Adverse Reactions: Beef Containing Products Allergy (Verified 04/22/18 18:45) egg Allergy (Verified 04/22/18 18:45) peanut Allergy (Verified 04/22/18 18:16) - Diet/Activity Discharge Diet: Cardiac, Diabetic Physical Exam Vital Signs: Temp Pulse Resp BP Pulse Ox 98.4 F 69 18 119/71 93 04/25/18 07:33 04/25/18 07:33 04/25/18 07:33 04/25/18 07:33 04/25/18 07:33 Intake & Output 04/24/18 04/25/18 04/26/18 06:59 06:59 06:59 Intake Total 2946 1704 Balance 2946 1704 Weight 147.1 kg 145.4 kg General appearance: PRESENT: no acute distress, cooperative, morbidly obese, well-developed, well-nourished Head exam: PRESENT: atraumatic, normocephalic Eye exam: PRESENT: conjunctiva pink, EOMI, PERRLA. ABSENT: scleral icterus Ear exam: PRESENT: normal external ear exam Mouth exam: PRESENT: moist, tongue midline Neck exam: ABSENT: carotid bruit, JVD, lymphadenopathy, thyromegaly Respiratory exam: PRESENT: clear to auscultation rebecca, decreased breath sounds - Bibasilar, symmetrical, unlabored. ABSENT: rales, rhonchi, wheezes Cardiovascular exam: PRESENT: bradycardia, +S1, +S2. ABSENT: diastolic murmur, rubs, systolic murmur Pulses: PRESENT: normal dorsalis pedis pul Vascular exam: PRESENT: normal capillary refill GI/Abdominal exam: PRESENT: normal bowel sounds, soft. ABSENT: distended, guarding, mass, organolmegaly, rebound, tenderness Rectal exam: PRESENT: deferred Extremities exam: PRESENT: full ROM. ABSENT: calf tenderness, clubbing, pedal edema Neurological exam: PRESENT: alert, awake, oriented to person, oriented to place , oriented to time, oriented to situation, CN II-XII grossly intact. ABSENT: motor sensory deficit Psychiatric exam: PRESENT: appropriate affect, normal mood. ABSENT: homicidal ideation, suicidal ideation Skin exam: PRESENT: dry, intact, warm. ABSENT: cyanosis, rash Results Laboratory Results: 04/25/18 06:28 04/25/18 06:28 04/25/18 04/25/18 06:28 06:28 WBC 6.5 RBC 3.93 Hgb 11.3 L Hct 33.4 L MCV 85 MCH 28.8 MCHC 33.8 RDW 14.7 H Plt Count 260 Sodium 140.9 Potassium 4.3 Chloride 104 Carbon Dioxide 24 Anion Gap 13 BUN 16 Creatinine 0.83 Est GFR ( Amer) > 60 Est GFR (Non-Af Amer) > 60 Glucose 189 H Calcium 10.8 H 04/23/18 04/23/18 04/23/18 03:21 10:33 15:30 CK-MB (CK-2) 1.95 0.66 1.66 Troponin I 0.046 0.020 0.046 Impressions: Chest X-Ray 04/22/18 00:00 IMPRESSION: No acute cardiopulmonary abnormality. Head CT 04/22/18 00:00 IMPRESSION: 1. No acute intracranial hemorrhage. 2. Old injury to the left high parietal region with large area of encephalomalacia. There is a fracture of the overlying calvarium with fragments within the area of encephalomalacia, which all appear chronic. However, please correlate for point tenderness in this region. Head MRI 04/24/18 00:00 IMPRESSION: Large area of encephalomalacia in the left parietal lobe from prior trauma apparently. Chronic microvascular ischemic changes. No acute intracranial imaging findings. EVIDENCE OF ACUTE STROKE: NO. Plan Discharge Plan: Transfer to [facility] under the care of Dr. Dennis Greenfield. Time Spent: Less than 30 Minutes
[2018-04-25] MEDS: NORMAL SALINE 1000 ML 1,000 ML IV PRN ×2 (12:23→19:48)
[2018-04-25] MEDS: INSULIN LISPRO 100 UNIT/ML 3 ML VIAL SUBCUT PRN (17:17)
[2018-04-25 18:55] VITALS: BP 114/57
== END 2018-04-25 21:07 | disposition short-term general hospital (02) ==
LOC: ER 18:15 → EH 04-23 00:37 → INTOOBSV 04-23 00:37 → 4S 04-23 02:00
PROVIDERS: ADMIT Internal Medicine; ATTEND Internal Medicine
DX: R55 Syncope and collapse (principal); R00.1 Bradycardia, unspecified; E86.0 Dehydration; R79.89 Other specified abnormal findings of blood chemistry; G93.89 Other specified disorders of brain; R42 Dizziness and giddiness; E11.9 Type 2 diabetes mellitus without complications; R21 Rash and other nonspecific skin eruption; E66.01 Morbid (severe) obesity due to excess calories; K21.9 Gastro-esophageal reflux disease without esophagitis; I48.0 Paroxysmal atrial fibrillation; K59.00 Constipation, unspecified; L29.9 Pruritus, unspecified; H53.8 Other visual disturbances; H92.09 Otalgia, unspecified ear; R07.0 Pain in throat; R53.1 Weakness; R05 Cough; Z60.2 Problems related to living alone; Z79.899 Other long term (current) drug therapy; Z82.49 Family history of ischemic heart disease and other diseases of the circulatory system; Z85.3 Personal history of malignant neoplasm of breast; Z90.49 Acquired absence of other specified parts of digestive tract; Z90.11 Acquired absence of right breast and nipple; Z82.3 Family history of stroke; Z87.820 Personal history of traumatic brain injury; Z86.73 Personal history of transient ischemic attack (TIA), and cerebral infarction without residual deficits; Z98.890 Other specified postprocedural states; Z68.43 Body mass index [BMI] 50.0-59.9, adult
CPT/HCPCS: 93005 ×2; 99285; 96360; 96361; 36415 ×4; 82553 ×2; 82962 ×4; 82550; 84443; 85025; 85027; 80048 ×3; 80053; 81001; 84484 ×2; 83036; 70551; 71045; 70450; 94799; 93010 ×2; G0378 ×4; A9270 ×19; J1610; J2060; J3490 ×5; J7030 ×3; J1815